=== PATIENT | male | born 1950 | race Caucasian/White ===

== ENCOUNTER 2019-08-20 03:27 | Observation (INO) | payer MEDICARE, BC ==
[~2019-08-20] VITALS: Ht 182.9 cm; Wt 91.3 kg
[2019-08-20] MEDS ORDERED: DILTIAZEM HCL 5 MG/ML 10 ML VIAL IV ONE ×2 (03:55→03:58)
[2019-08-20] MEDS ORDERED: SODIUM CHLORIDE 0.9% 100 ML IV ONE ×2 (03:56→12:14)
[2019-08-20 04:08] LABS: BASOPHILS % (AUTO) 0.7 % (0.0-5.0); LYMPHOCYTES % (AUTO) 27.3 % (21.0-51.0); MEAN CORPUSCULAR HEMOGLOBIN 31.4 pg (27.0-33.0); MEAN CORPUSCULAR HGB CONC 32.9 g/dL (32.0-36.0); MEAN CORPUSCULAR VOLUME 95.5 fL (79-99); MONOCYTES % (AUTO) 9.4 % (3.0-13.0); NEUTROPHILS % (AUTO) 57.2 % (40.0-77.0); PLATELET COUNT (AUTO) 242 K/uL (130-400); RED CELL DISTRIBUTION WIDTH 13.9 % (11.0-15.5); WHITE BLOOD COUNT (AUTO) 5.6 K/uL (4.8-10.8)
[2019-08-20 04:17] LABS: CREATININE 0.7 mg/dL (0.5-1.5); POTASSIUM 3.5 mmol/L (3.5-5.1)
[2019-08-20 04:22] LABS: ALBUMIN 3.3 g/dL (3.5-5.0); BILIRUBIN,TOTAL 0.2 mg/dL (0.2-1.0); TOTAL PROTEIN, SERUM 6.7 g/dL (6.0-8.3)
[2019-08-20] MEDS ORDERED: DILTIAZEM HCL 5 MG/ML 5 ML VIAL IVP ONE (04:27)
[2019-08-20 04:32] LABS: INR 0.88 (0.85-1.15); PARTIAL THROMBOPLASTIN TIME 27.5 SEC (26.3-35.5); PROTHROMBIN TIME 9.3 SEC (9.6-11.6)
[2019-08-20] MEDS ORDERED: HYDRALAZINE HCL 20 MG/ML VIAL IV PRN (05:15)
[2019-08-20] MEDS ORDERED: DILTIAZEM HCL 125 MG/25 ML 125 MG in SODIUM CHLORIDE 0.9% 100 ML IV SCH (05:15)
[2019-08-20] MEDS ORDERED: LACTULOSE 20 GM/30 ML UDCUP PO PRN (05:15)
[2019-08-20] MEDS ORDERED: ACETAMINOPHEN 325 MG TAB PO PRN ×2 (05:15)
[2019-08-20] MEDS ORDERED: ONDANSETRON HCL 4 MG/2 ML VIAL IV PRN (05:15)
[2019-08-20] MEDS ORDERED: ENOXAPARIN SODIUM 40 MG/0.4 ML SYRINGE SQ SCH (09:00)
[2019-08-20] MEDS: FAMOTIDINE 20MG TAB 20 MG TAB PO SCH ×2 (09:00→21:00)
[2019-08-20] MEDS ORDERED: METOPROLOL SUCCINATE 50 MG TAB.SR.24H PO SCH (10:15)
--- NOTE | 2019-08-20 16:38 | NUR ---
DCP: HOME Sw met with pt who is from [place], he and Dacia Fong [phone] spend 2 months a year in the [place]. Pt reports he is active and independent of all ADLS, no DME or in home care services. Pt has no local PCP, uses [facility]. They plan is to return to [place] September 08. Pt denies dc needs and plan at dc is home with Addendum: 08/20/19 at 1639 by FABI STEPHENS SS Amended: Links added.
[2019-08-20] MEDS ORDERED: APIXABAN 2.5 MG TABLET PO ONE ×2 (16:59→21:29)
[2019-08-20] MEDS ORDERED: EVOL140S2 SQ (20:57)
[2019-08-20] MEDS ORDERED: APIX5TAB PO (20:57)
[2019-08-20] MEDS ORDERED: LOSA100T58 PO (20:57)
[2019-08-20] MEDS ORDERED: METO-408 PO (20:57)
[2019-08-20] MEDS ORDERED: APIXABAN 5 MG TABLET PO SCH (21:00)
[2019-08-21 04:50] VITALS: BP 146/82
[2019-08-21] MEDS ORDERED: METO-391 PO (06:50)
[2019-08-21 07:32] VITALS: BP 139/90
--- NOTE | 2019-08-21 08:00 | NUR ---
AM SHIFT ASSESSMENT. STATES DR. MCCAIN HAS BEEN BY HIS AM AND TOLD HIM HE COULD GO HOME FROM HIS STANDPOINT
[2019-08-21] MEDS: FAMOTIDINE 20MG TAB 20 MG TAB PO SCH (08:32)
[2019-08-21] MEDS ORDERED: METOPROLOL SUCCINATE 50 MG TAB.SR.24H PO SCH (09:00)
--- NOTE | 2019-08-21 11:30 | NUR ---
DISCHARGED NOW USING TEACH BACK,RX. FOR TOPROL 50MG PO DAILY GIVEN. WILL FOLLOW UP WITH [employer] IN 1 TO 2 WEEKS WHEN HE RETURNS HOME IN [place]. SALINE LOCK REMOVED, MATERIALS MANAGER REMOVED. NO C/O OR CONCERNS VOICED AT TIME OF DISCHARGE,
--- NOTE | 2019-08-21 12:18 | NUR ---
[id number] patient signed IM Letter, i faxed IM Letter and placed in chart under consent tab.
== END 2019-08-21 11:45 | disposition home or self-care (01) ==
LOC: EDH 03:27 → EDHIP 05:06 → INTOOBSV 05:06 → 3DH 08-21 04:50
PROVIDERS: ADMIT Internal Medicine; ATTEND Internal Medicine
DX: I48.0 Paroxysmal atrial fibrillation (principal); D68.59 Other primary thrombophilia; I10 Essential (primary) hypertension; E78.5 Hyperlipidemia, unspecified; E11.9 Type 2 diabetes mellitus without complications; E78.00 Pure hypercholesterolemia, unspecified; Z79.01 Long term (current) use of anticoagulants; Z79.899 Other long term (current) drug therapy
CPT/HCPCS: 36415; 71045; 80053; 82550; 84484; 85025; 85610; 85730; 93005 ×2; 99285; G0378 ×31; J3490 ×5